=== PATIENT | male | born 1970 | race African-American/Black ===

== ENCOUNTER 2021-07-02 15:53 | Emergency (ER) | payer OTHER ==
[~2021-07-02] VITALS: Ht 180.3 cm; Wt 81.0 kg
[2021-07-02] MEDS ORDERED: ONDANSETRON HCL 4MG/2ML INJ IV STA (16:09)
[2021-07-02] MEDS ORDERED: MORPHINE SULFATE 4 MG/ML CPJ (NOT FOR IM USE) IV STA (16:09)
[2021-07-02] MEDS ORDERED: SODIUM CHLORIDE 0.9% 1,000 ML IV ONE (16:15)
[2021-07-02] MEDS ORDERED: KETOROLAC 15MG/ML VIAL IV ONE (17:15)
[2021-07-02] MEDS ORDERED: ETOMIDATE 2MG/ML 10ML VIAL IV ONE (17:15)
[2021-07-02] MEDS ORDERED: MORPHINE SULFATE 4 MG/ML CPJ (NOT FOR IM USE) IV ONE (17:30)
[2021-07-02] MEDS ORDERED: IBUP-2028 MT (18:56)
[2021-07-02 19:35] VITALS: BP 146/89
== END 2021-07-02 20:31 | disposition home or self-care (01) ==
LOC: ER 15:53
DX: S43.084A Other dislocation of right shoulder joint, initial encounter (principal); M25.511 Pain in right shoulder; V19.3XXA Pedal cyclist (driver) (passenger) injured in unspecified nontraffic accident, initial encounter; Y93.55 Activity, bike riding; Y92.410 Unspecified street and highway as the place of occurrence of the external cause
CPT/HCPCS: 23650; 73030; 96361; 96374; 96375; 99152; 99285; J1885; J2270; J2405; J3490; J7030; L3670

== ENCOUNTER 2021-08-15 08:26 | Emergency (ER) | payer MEDICAID, OTHER ==
[~2021-08-15] VITALS: Ht 182.9 cm; Wt 86.0 kg
[~2021-08-15 08:26] MED LIST: IBUP-2028 MT
[2021-08-15 08:57] VITALS: BP 111/79
[2021-08-15] MEDS ORDERED: IBUPROFEN 600MG TABLET PO ONE (09:45)
[2021-08-15] MEDS ORDERED: IBUP-2029 MT (10:28)
[2021-08-15] MEDS ORDERED: TOPUD MT (10:28)
== END 2021-08-15 11:05 | disposition home or self-care (01) ==
LOC: ER 08:26
DX: S92.351A Displaced fracture of fifth metatarsal bone, right foot, initial encounter for closed fracture (principal); W11.XXXA Fall on and from ladder, initial encounter; Y93.89 Activity, other specified; Y92.89 Other specified places as the place of occurrence of the external cause; Y99.8 Other external cause status
CPT/HCPCS: 29515; 73610; 73630; 99284; Z7610

== ENCOUNTER 2021-08-22 07:51 | Emergency (ER) | payer MEDICAID, OTHER ==
[~2021-08-22] VITALS: Ht 188 cm; Wt 86.0 kg
[~2021-08-22 07:51] MED LIST changes: +IBUP-2029 MT; +TOPUD MT
[2021-08-22] MEDS ORDERED: HYDR-3782 MT (08:11)
[2021-08-22] MEDS ORDERED: PERM60CR4 TP (08:11)
[2021-08-22 09:40] VITALS: BP 122/85
== END 2021-08-22 09:43 | disposition home or self-care (01) ==
LOC: ER 07:51
DX: R21 Rash and other nonspecific skin eruption (principal); S92.321A Displaced fracture of second metatarsal bone, right foot, initial encounter for closed fracture; S92.331A Displaced fracture of third metatarsal bone, right foot, initial encounter for closed fracture; S92.341A Displaced fracture of fourth metatarsal bone, right foot, initial encounter for closed fracture; S92.354A Nondisplaced fracture of fifth metatarsal bone, right foot, initial encounter for closed fracture; X58.XXXA Exposure to other specified factors, initial encounter; Y93.89 Activity, other specified; Y92.89 Other specified places as the place of occurrence of the external cause; Y99.8 Other external cause status
CPT/HCPCS: 29515; 99283